=== PATIENT | female | born 1960 | race Caucasian/White ===

== ENCOUNTER 2019-06-03 15:50 | Inpatient (IN) | payer OTHER ==
[~2019-06-03] VITALS: Ht 170.2 cm; Wt 73.9 kg
[~2019-06-03 15:50] MED LIST: AMITRIPTYLINE H50 M2 PO; CALCIUM 600 +1 EAC7 PO; CELEXA 20 MG TA20 MG PO; COLACE100 MG PO; FISH OIL PO; LINZESS145 MCG PO; MOM PO; NEOSPORIN; NEURONTIN 300300 M1 PO; TOPAMAX200 MG PO; VICODIN ES 7.51 EACH PO; WOMEN'S 50 PLU1 EACH PO
[2019-06-03 16:07] VITALS: BP 100/55
[2019-06-03 17:24] LABS: URINE BILIRUBIN NEGATIVE (Negative); URINE BLOOD 3+ (Negative); URINE COLOR YELLOW; URINE GLUCOSE-RANDOM NEGATIVE (Negative); URINE KETONES NEGATIVE (Negative); URINE LEUKOCYTES 2+ (Negative); URINE NITRITE POSITIVE (Negative); URINE PROTEIN 1+ (Negative); URINE SPECIFIC GRAVITY 1.015 (1.005-1.030); URINE UROBILINOGEN 0.2 E.U./dl (0.2-1.0)
[2019-06-03 17:25] LABS: URINE CLARITY HAZY
[2019-06-03 17:33] LABS: HEMATOCRIT 38.6 % (37.0-47.0); HEMOGLOBIN 13.2 gm/dL (12.0-15.0); MCHC 34.3 g/dL (28.0-37.0); MCV 90.4 fL (80.0-100.0); MPV 8.6 fl. (7.2-11.1); NUCLEATED RBCS 0 /100WBC; RBC 4.27 mil/uL (4.20-5.00); RDW-CV 14.6 % (10.5-14.5); WBC 9.6 thou/uL (4.0-11.0)
[2019-06-03 17:39] LABS: SQUAMOUS 4-10 Moderate /LPF (0-3)
[2019-06-03 17:40] LABS: BACTERIA >30 Many /HPF (None Seen); CASTS None Seen /LPF (None Seen); CRYSTALS None Seen /LPF (None Seen); MUCUS 0-3 Light strn/LPF (None Seen); URINE RBC >20 Many /HPF (0-2); URINE WBC >25 Many /HPF (0-5)
[2019-06-03] MEDS ORDERED: OMEPRAZOLE 20 M20 M1 PO (17:42)
[2019-06-03] MEDS ORDERED: NASACORT10.8 ML NARES (17:43)
[2019-06-03] MEDS ORDERED: LEVOTHYROXINE500 MCG PO (17:43)
[2019-06-03] MEDS ORDERED: METAMUCIL1 EAC1 PO (17:44)
[2019-06-03] MEDS ORDERED: MYRBETRIQ25 MG PO (17:44)
[2019-06-03] MEDS ORDERED: EQUETRO100 MG PO (17:44)
[2019-06-03] MEDS ORDERED: ASA81BEC PO (17:44)
[2019-06-03] MEDS ORDERED: PROBIOTIC1 EAC7 PO (17:44)
[2019-06-03 17:56] LABS: CALCIUM 8.7 mg/dL (8.5-10.1); POTASSIUM 3.5 mmol/L (3.5-5.1)
[2019-06-03 18:06] LABS: ABSOLUTE LYMPHOCYTES 0.5 thou/uL (0.8-5.3); ABSOLUTE MONOCYTES 0.7 thou/uL (0.0-1.2); ABSOLUTE NEUTROPHILS 8.4 thou/uL (1.6-8.1); ATYPICAL LYMPHS 1 %; PLATELET ESTIMATE DECREASED
[2019-06-03 18:07] LABS: PLATELET COUNT* 161 thou/uL (150-400)
[2019-06-03 18:15] LABS: ALBUMIN 3.4 g/dL (3.4-5.0); MAGNESIUM 1.5 mg/dL (1.8-2.4); TOTAL BILIRUBIN 0.4 mg/dL (<0.1-1.0); TOTAL PROTEIN 7.1 g/dL (6.4-8.2)
[2019-06-03 19:03] LABS: INFLUENZA A ANTIGEN Negative (Negative); INFLUENZA B ANTIGEN Negative (Negative)
[2019-06-03 22:00] VITALS: BP 103/49
[2019-06-03 22:05] VITALS: BP 107/41
--- NOTE | 2019-06-03 22:05 | NUR ---
PT ADMITTED TO FLOOR PER CART ACCOMPANIED BY FAMILY MEMBER WITH BELONGINGS. AO X4, ORIENTED TO ROOM AND CALL LITE. HISTORY OBTAINED AND ASSESSMENT PERFORMED. SEE ADMIT NOTES. DENIES PAIN OR NAUSEA AT PRESENT. UP WITH SBA AND ROLLING WALKER TO BR TO VOID. LWRIST SLIV. WILL CONTINUE TO MONITOR AND PROVIDE CARES ORDERED. CALL LITE IN EASY REACH. BED ALARM ON FOR SAFETY.
[2019-06-04 04:19] LABS: HEMATOCRIT 30.9 % (37.0-47.0); MCH 31.2 pg (26.0-34.0); MCV 89.1 fL (80.0-100.0); MPV 8.8 fl. (7.2-11.1); RBC 3.46 mil/uL (4.20-5.00); RDW-CV 14.6 % (10.5-14.5); WBC 8.2 thou/uL (4.0-11.0)
[2019-06-04 04:31] LABS: CALCIUM 8.2 mg/dL (8.5-10.1); CREATININE 0.8 mg/dL (0.6-1.3); MAGNESIUM 1.7 mg/dL (1.8-2.4); POTASSIUM 3.6 mmol/L (3.5-5.1)
[2019-06-04 04:54] LABS: HEMOGLOBIN 10.8 gm/dL (12.0-15.0)
[2019-06-04 04:57] VITALS: BP 114/56
--- NOTE | 2019-06-04 05:27 | NUR ---
PT HAS SLEPT WELL AFTER SETTLING IN AFTER ADMIT. PHILLIPS DRAINING YELLOW URINE. PT UP WITH ROLLING WALKER AND SBA. AM LABS DRAWN. ELECTROLYTE PROTOCOL IN PLACE AND MEDS GIVEN ORDERED. VSS. UROLOGY TO CONSULT TODAY. NO CO PAIN OR N/V THIS SHIFT.
[2019-06-04 08:00] VITALS: BP 109/57
--- NOTE | 2019-06-04 13:14 | NUR ---
SW met with pt to complete initial assessment, introduce self, and SW role. Pt lives at home with dad and step mom with good support in sister next door and mom who lives in [place]. Pt said that he goes to support groups for MS that she finds helpful. Pt has 4 ww with a seat. Pt has hx of in home assistance. Pt wants to change her DPOA/AD, SW provided a blank DPOA for pt to update. SW will continue to follow to assist with safe dc planning.
--- NOTE | 2019-06-04 13:37 | EKG ---
[place] [address] ELECTROCARDIOGRAM REPORT Name: RYNECHETNA Faustino Room: [address] ADM IN .R.#: [id number] Admission: 06/03/19 Attend Phys: Koko Schultz MD Discharge: Date of : 56 Report #: [id number] THIS REPORT FOR: //name// [facility] ED Test Date: 2019-06-03 Test Time: 17:25:20 Pat Name: CHETNA MICHELE Department: Room: [facility] Gender: F [employer] Custodian: : 1960 Requested By: Cassy Nixon Order Number: [id number] MD: Danial Smith Measurements Intervals [place] Rate: 69 P: 43 PA: 178 QRS: 19 QRSD: 102 T: 34 QT: 391 QTc: 419 Interpretive Statements Sinus rhythm No previous ECG available for comparison Electronically Signed On 06-04-2019 13:37:17 POT ROOM TAPPER by Danial Smith [email or web address] <ELECTRONICALLY SIGNED> By: Danial Smith MD, [facility] 06/04/19 1337 1725 1725 Danial Smith MD, FACC /EPI
[2019-06-04 16:50] VITALS: BP 139/69
--- NOTE | 2019-06-04 18:04 | NUR ---
PATIENT RESTING IN BED. PATIENT IS UP STANDBY ASSIST WITH WALKER. PATIENT DENIES ANY PAIN. PATIENT HAS RESTED IN ROOM MOST OF DAY. PATIENT HAS GOOD APPETITE. PATIENT DENIES ANY NEEDS AT THIS TIME. CALL LIGHT WITHIN REACH.
[2019-06-04 19:45] VITALS: BP 135/56
[2019-06-05 04:21] LABS: HEMATOCRIT 33.3 % (37.0-47.0); HEMOGLOBIN 11.5 gm/dL (12.0-15.0); MCH 30.8 pg (26.0-34.0); MCHC 34.6 g/dL (28.0-37.0); MCV 89.1 fL (80.0-100.0); MPV 8.6 fl. (7.2-11.1); RBC 3.74 mil/uL (4.20-5.00); RDW-CV 14.7 % (10.5-14.5); WBC 5.4 thou/uL (4.0-11.0)
[2019-06-05 04:44] LABS: CALCIUM 8.3 mg/dL (8.5-10.1); CREATININE 0.8 mg/dL (0.6-1.3); MAGNESIUM 1.8 mg/dL (1.8-2.4); POTASSIUM 3.4 mmol/L (3.5-5.1)
--- NOTE | 2019-06-05 05:09 | NUR ---
PT SLEPT WELL OVERNIGHT. AOX4, ABLE TO USE CALL LITE AND MAKE NEEDS KNOWN. UP WITH SBA AND WALKER TO SINK TO BRUSH TEETH. PHILLIPS CATHETER DRAINING YELLOW URINE, SPECIMEN SENT TO LAB THIS SHIFT FOR CULTURE. AM LABS DRAWN. PT DENIES PAIN OR N/V THIS SHIFT, HOPEFUL FOR DISCHARGE HOME SOON. ABLE TO USE CALL LITE AND MAKE NEEDS KNOWN. LWRIST SLIV.
[2019-06-05 07:55] VITALS: BP 134/67
[2019-06-05] MEDS ORDERED: CEFUROXIME500 MG PO ×2 (09:12→09:14)
[2019-06-05 11:08] VITALS: BP 135/56
--- NOTE | 2019-06-05 15:00 | NUR ---
PATIENT DISCHARGED TO HOME. DISCHARGE PAPERS REVIEWED AND SIGNED. PRESCRIPTION CALLED IN TO PHARMACY AND INFORMATION SHEETS GIVEN. IV REMOVED. PHILLIPS CATHETER REMOVED. PATIENT DENIES ANY FURTHER NEEDS. PATIENT TAKEN BY WHEELCHAIR TO EXIT. LEFT WITH FRIEND.
== END 2019-06-05 15:00 | disposition home or self-care (01) | DRG 872 ==
LOC: M.ERS 15:50 → M.3W 19:13 → M.TBA-ER 19:13 → M.3W 22:01
PROVIDERS: Physician Assistant; ADMIT Internal Medicine
DX: A41.9 Sepsis, unspecified organism (principal); N12 Tubulo-interstitial nephritis, not specified as acute or chronic; E87.1 Hypo-osmolality and hyponatremia; G62.9 Polyneuropathy, unspecified; N31.8 Other neuromuscular dysfunction of bladder; G35 Multiple sclerosis; E03.9 Hypothyroidism, unspecified; E87.6 Hypokalemia; E83.42 Hypomagnesemia; E86.9 Volume depletion, unspecified; T78.1XXA Other adverse food reactions, not elsewhere classified, initial encounter; X58.XXXA Exposure to other specified factors, initial encounter; R33.9 Retention of urine, unspecified; Z90.49 Acquired absence of other specified parts of digestive tract; Z90.710 Acquired absence of both cervix and uterus; Z88.0 Allergy status to penicillin; Z88.2 Allergy status to sulfonamides; Z88.8 Allergy status to other drugs, medicaments and biological substances; Z87.891 Personal history of nicotine dependence